=== PATIENT | female | born 1970 | race Caucasian/White ===

== ENCOUNTER 2016-06-12 18:08 | Emergency (ER) | payer BC ==
--- NOTE | 2016-06-12 19:54 | ED ---
Upper Extremity Pain - HPI Summary HPI Summary: Pt here w/ Lt shoulder pain s/p fall in hotel shower earlier today. She was bending over to get a shampoo bottle when she slipped and rotated to land and hit the side/back of her Lt shoulder in the corner of the bath tub. As she continued to roll, she thinks she may have grazed her nose on the side of the tub wall but denies lucia head injury. No report of epistaxis and denies LLOYD, visual change, neck pain and LOC. No back pain, elbow pain, forearm, wrist or hand pain. She does have a "pins and needles" sensation in her Lt thumbm index and ring fingers but is able to move them well, strength is intact and she has sensation when she touches here. No other injuries or pain reported. - History of Current Complaint Chief Complaint: EDShoulderClavicSami Stated Complaint: LEFT SHOULDER INJURY Time Seen by Provider: 06/12/16 18:44 Hx Obtained From: Patient, Family/[employer] - - Allergies/Home Medications Allergies/Adverse Reactions: Allergies Allergy/AdvReac Type Severity Reaction Status Date / Time beesting Allergy Anaphylatic Uncoded 06/12/16 18:13 Shock hard shellfish Allergy Anaphylatic Uncoded 06/12/16 18:13 Shock PMH/Surg Hx/FS Hx/Imm Hx Previously Healthy: Yes Endocrine/Hematology History: Denies: Hx Anticoagulant Therapy, Hx Blood Disorders, Hx Diabetes, Hx Thyroid Disease, Hx Unexplained Bleeding Cardiovascular History: Denies: Hx Hypertension, Hx Pacemaker/ICD Respiratory History: Denies: Hx Asthma, Hx Chronic Obstructive Pulmonary Disease (COPD) GI History: Denies: Hx Ulcer Sensory History: Denies: Hx Hearing Aid Psychiatric History: Denies: Hx Panic Disorder - Surgical History Surgery Procedure, Year, and Place: TUBAL PRIOR TO HYSTERECTOMY JANUARY 2011;. GALLBLADDER 1992;. TENDON REPAIR WRIST 2001;. tendon/ligament and heel removed w/arch surgery left foot Infectious Disease History: No Infectious Disease History: Denies: Hx Hepatitis, Hx Human Immunodeficiency Virus (HIV), History Other Infectious Disease, Traveled Outside the [place] in Last 30 Days - Social History Occupation: Employed Full-time - [employer] Alcohol Use: Rare Substance Use Type: Reports: None Smoking Status (MU): Never Smoked Tobacco Review of Systems Negative: Photophobia, Blurred Vision, Diplopia Negative: Dental Pain Negative: Chest Pain Negative: Shortness Of Breath Negative: Abdominal Pain, Vomiting, Nausea Positive: no symptoms reported Musculoskeletal: Other - see HPI Negative: Bruising Positive: Paresthesia - see HPI. Negative: Headache, Weakness, Numbness, Syncope, Slurred Speech Psychological: Normal All Other Systems Reviewed And Are Negative: Yes Physical Exam Triage Information Reviewed: Yes Vital Signs On Initial Exam: Initial Vitals Temp Pulse Resp BP Pulse Ox 97.9 F 82 16 155/93 100 06/12/16 18:13 06/12/16 18:13 06/12/16 18:13 06/12/16 18:13 06/12/16 18:13 Vital Signs Reviewed: Yes Appearance: Positive: Well-Appearing, No Pain Distress - at rest - pain w/ moving Lt UE, Obese Skin: Positive: Warm, Dry - no lucia erythema or ecchymosis Head/Face: Positive: Normal Head/Face Inspection Eyes: Positive: Normal, EOMI, Conjunctiva Clear ENT: Positive: Hearing grossly normal, Pharynx normal Neck: Positive: Supple, Nontender Respiratory/Lung Sounds: Positive: Breath Sounds Present. Negative: Subcutaneous Emphysema Cardiovascular: Positive: Normal, Pulses are Symmetrical in both Upper and Lower Extremities Abdomen Description: Positive: Nontender, Soft Musculoskeletal: Positive: Strength/ROM Intact, Pain @ - Although she can abduct her Lt shoulder, she has pain w/ end range of motion; can also internal rotate but is painful; TTP over anterior humerus and deltoid area; clavicle is intact and NTTP, Other - SPINOUS PP NTTP and FROM spine w/o pain or restriction Neurological: Positive: Normal, Sensory/Motor Intact, Alert, Oriented to Person Place, Time, CN Intact II-III Psychiatric: Positive: Normal Diagnostics - Vital Signs Vital Signs Temp Pulse Resp BP Pulse Ox 06/12/16 18:13 97.9 F 82 16 155/93 100 - Laboratory Lab Statement: Any lab studies that have been ordered have been reviewed, and results considered in the medical decision making process. Course/Dx - Course Course Of Treatment: XR report states "on the AP view, the Lt lateral head of the humeral head appears to be displaced somewhat displaced inferiorly relative to the bony glenoid labrum. There is no definitive fracture identified. Please correlate to signs of dislocation.". As pt does not have gross deformity of shoulder and although painful, has FROM Lt shoulder, elbow, wrist and fingers. Strength and sensation to touch intact. Pt reports "pins and needles along fingers innervated by median n (htumb, index and middle fingers). Well perfused. Discussed w/ Dr. Adamson who feels pt is a fine candidate for sling and follow-up with ortho. Reviewed danger s/sx w/ pt for when to return to ED. - Diagnoses Provider Diagnoses: Sprain of shoulder, left Discharge - Discharge Plan Condition: Stable Disposition: HOME Patient Education Materials: Shoulder Dislocation (ED), How to Use a Sling (GEN ), Shoulder Sprain (ED) Forms: *Work Release Referrals: Latrell Stewart MD [Medical Doctor] - Jerome DANG,Torey Mcclure [Primary Care Provider] - Additional Instructions: Your XR indicates a mild inferior dislocation of your shoulder however you are able to move it through a complete range of motion and have good neurovascular supply. No fracture is seen. It is advised that you take ibuoprofen with food alternating with acetaminophen for pain. Apply ice and keep arm in sling. Follow -up with orthopedics next week. *If you develop numbness or weakness of your arm or discoloration of skin, coolness, etc return to ED
[2016-06-12] MEDS ORDERED: Ibuprofen TAB* 600 MG PO ONE (20:06)
--- NOTE | 2016-06-12 20:07 | RAD ---
INDICATION: Left shoulder pain after a fall COMPARISON: None. TECHNIQUE: 3 views of the left shoulder were obtained. FINDINGS: The visualized bones are adequately corticated. On the AP views the humeral head appears to be displaced inferiorly relative to the bony glenoid labrum. Otherwise joint spaces appear maintained. IMPRESSION: ON THE AP VIEWS THE LEFT HUMERAL HEAD APPEARS TO BE DISPLACED SOMEWHAT INFERIORLY RELATIVE TO THE BONY GLENOID LABRUM. THERE IS NO DEFINITE FRACTURE IDENTIFIED. PLEASE CORRELATE TO SIGNS OF DISLOCATION. If the patient's symptoms persist, follow-up imaging is recommended.
[2016-06-12 20:41] VITALS: BP 146/82
== END 2016-06-12 20:40 | disposition home or self-care (01) ==
LOC: ED 18:08
DX: S43.402A Unspecified sprain of left shoulder joint, initial encounter (principal); W18.2XXA Fall in (into) shower or empty bathtub, initial encounter; Y93.E1 Activity, personal bathing and showering; Y92.002 Bathroom of unspecified non-institutional (private) residence as the place of occurrence of the external cause
CPT/HCPCS: 99282; A9270-GY

== ENCOUNTER → 2016-11-11 17:26 | Emergency (ER) | payer BC ==
[2016-11-11 19:56] VITALS: BP 127/66
--- NOTE | 2016-11-11 21:29 | ED ---
Throat Pain/Nasal Congestion - HPI Summary HPI Summary: Patient presents to the ED with dysphagia, odynphagia and vomiting x 2 in the past week. She states the symptoms began spontaneously last week and have progressively worsened. Hx of GERD with symptoms of burning in the throat, but has never had odynophagia or dysphagia. She states symptoms have worsened, and feels like when food gets "stuck" she vomits the food out. She feels a lump in the back of her throat and feels that once the food will pass through the throat , its OK. She notes to symptoms of tightness, FB feeling and burning sensation. - History of Current Complaint Chief Complaint: EDThroatPain Time Seen by Provider: 11/11/16 18:07 Hx Obtained From: Patient Onset/Duration: Sudden Onset Severity: Moderate Associated Signs And Symptoms: Positive: Dysphagia, FB Sensation - Epiglottits Risk Factors Epiglottis Risk Factors: Negative - Allergies/Home Medications Allergies/Adverse Reactions: Allergies Allergy/AdvReac Type Severity Reaction Status Date / Time beesting Allergy Anaphylatic Uncoded 06/12/16 18:13 Shock hard shellfish Allergy Anaphylatic Uncoded 06/12/16 18:13 Shock PMH/Surg Hx/FS Hx/Imm Hx Previously Healthy: Yes Endocrine/Hematology History: Denies: Hx Anticoagulant Therapy, Hx Blood Disorders, Hx Diabetes, Hx Thyroid Disease, Hx Unexplained Bleeding Cardiovascular History: Denies: Hx Hypertension, Hx Pacemaker/ICD Respiratory History: Denies: Hx Asthma, Hx Chronic Obstructive Pulmonary Disease (COPD) GI History: Denies: Hx Ulcer Sensory History: Denies: Hx Hearing Aid Psychiatric History: Denies: Hx Panic Disorder - Surgical History Surgery Procedure, Year, and Place: TUBAL PRIOR TO HYSTERECTOMY JANUARY 2011;. GALLBLADDER 1992;. TENDON REPAIR WRIST 2001;. tendon/ligament and heel removed w/arch surgery left foot Infectious Disease History: No Infectious Disease History: Denies: Hx Hepatitis, Hx Human Immunodeficiency Virus (HIV), History Other Infectious Disease, Traveled Outside the [place] in Last 30 Days - Social History Occupation: Employed Full-time Lives: With Family Alcohol Use: Rare Hx Substance Use: No Substance Use Type: Reports: None Hx Tobacco Use: No Smoking Status (MU): Never Smoked Tobacco Do You Chew or Dip Tobacco: No Review of Systems Constitutional: Negative Eyes: Negative Positive: Sore Throat Cardiovascular: Negative Respiratory: Negative Positive: no symptoms reported, see HPI Musculoskeletal: Negative Neurological: Negative Psychological: Normal All Other Systems Reviewed And Are Negative: Yes Physical Exam Triage Information Reviewed: Yes Vital Signs On Initial Exam: Initial Vitals Temp Pulse Resp BP Pulse Ox 98.1 F 76 20 162/102 99 11/11/16 17:51 11/11/16 17:51 11/11/16 17:51 11/11/16 17:51 11/11/16 17:51 Vital Signs Reviewed: Yes Appearance: Positive: Well-Appearing, Well-Nourished Skin: Positive: Warm, Skin Color Reflects Adequate Perfusion Head/Face: Positive: Normal Head/Face Inspection Eyes: Positive: EOMI, YVETTE, Conjunctiva Clear ENT: Positive: Pharynx normal, Other - no tonsillar swelling, small white stone resembling a tonsillar stone on the left tonsil with airway patent and no enlarged LN. Neck: Positive: Supple, No Lymphadenopathy Respiratory/Lung Sounds: Positive: Clear to Auscultation, Breath Sounds Present Cardiovascular: Positive: Normal, RRR, Pulses are Symmetrical in both Upper and Lower Extremities Musculoskeletal: Positive: Normal, Strength/ROM Intact Neurological: Positive: Sensory/Motor Intact, Speech Normal Psychiatric: Positive: Normal AVPU Assessment: Alert Diagnostics - Vital Signs Vital Signs Temp Pulse Resp BP Pulse Ox 11/11/16 19:54 98.5 F 67 16 127/66 11/11/16 18:11 98.1 F 76 16 145/86 98 11/11/16 17:51 98.1 F 76 20 162/102 99 - Laboratory Lab Results: Lab Results 11/11/16 Range/Units 18:27 Group A Strep Rapid Negative (Negative) Lab Statement: Any lab studies that have been ordered have been reviewed, and results considered in the medical decision making process. EENT Course/Dx - Course Course Of Treatment: Patient presents with concern for dysphagia and odynophagia x 1 week which has been worsening. She notes to eating soft foods and liquids after 2x episodes vomiting. Discussed treatment options with patient. Encouraged a trial of omeprazole daily and maalox for breakthrough sxs for symptoms possibly related to GERD symptoms. Prednisone given for any inflammation. Encouraged ibuprofen 600mg three times daily and soft food diet. ENT referral and discussed the possible need for scope. She agrees with plan and is OK for discharge. - Differential Diagnoses Differential Diagnoses: Foreign Body, Other - odynophagia/dysphagia - Diagnoses Provider Diagnoses: Dysphagia, Odynophagia Discharge - Discharge Plan Condition: Stable Disposition: HOME Prescriptions: Al Hydrox/Mg Hydrox/Simet LIQ* [Maalox Plus*] 30 ml PO Q4H PRN #600 ml PRN Reason: Pain Omeprazole 40 mg PO DAILY #30 cap predniSONE TAB* [Deltasone TAB*] 50 mg PO DAILY #5 tab MDD 1 Patient Education Materials: Dysphagia (ED) Referrals: Erasmo Ordaz MD [Medical Doctor] - Jerome DANG,Torey Mcclure [Primary Care Provider] - Additional Instructions: Call Dr. Ordaz's office tomorrow morning for appt Start taking prednisone once daily in the morning for 5 days Omeprazole 40mg daily - this is also over the counter Maalox 30ml up to every 4 hours only as needed for symptoms Ibpurofen 600mg three times daily for discomfort
== END | disposition home or self-care (01) ==
LOC: ED 17:26
DX: R13.10 Dysphagia, unspecified (principal); R11.10 Vomiting, unspecified; J02.9 Acute pharyngitis, unspecified
CPT/HCPCS: 87651; 99281

== ENCOUNTER 2018-01-05 17:40 | Emergency (ER) | payer BC ==
[2018-01-05] MEDS ORDERED: Ondansetron INJ* 2 MG/ML VIAL IV ONE (18:43)
[2018-01-05] MEDS ORDERED: Morphine VIAL* 10 MG/ML 1 ML VIAL IV ONE (18:43)
[2018-01-05] MEDS ORDERED: NS 0.9% 1000 ML* 1,000 ML IV ONE (18:43)
[2018-01-05 19:21] LABS: Hematocrit 44 % (35-47); Mean Corpuscular HGB Conc 34 g/dl (31-36); Mean Corpuscular Hemoglobin 30 pg (27-31); Mean Corpuscular Volume 88 fL (80-97); Mean Platelet Volume 9.6 um3 (7.4-10.4); Platelet Count 187 10^3/ul (150-450); Red Blood Count 5.03 10^6/ul (4.00-5.40); Red Cell Distribution Width 14 % (10.5-15); White Blood Count 4.2 10^3/ul (3.5-10.8)
[2018-01-05] MEDS ORDERED: Morphine INJ* 4 MG/ML 1 ML SYRINGE (NEW SYRINGE VERSION) ONE (19:33)
[2018-01-05 19:36] LABS: EGFR Non-African American 95.2 (>60)
[2018-01-05 19:54] LABS: ABS Basophils 0 10^3/ul (0-0.2); ABS Eosinophils 0 10^3/ul (0-0.6); ABS Lymphocytes 1.4 10^3/ul (1.0-4.8); ABS Monocytes 0.6 10^3/ul (0-0.8); ABS Neutrophils 2.2 10^3/ul (1.5-7.7); ABS Nucleated RBC 0 10^3/ul; Eosinophil % 0.7 % (0-6); Nucleated Red Blood Cells % 0.3
[2018-01-05 20:33] LABS: Urine Appearance Cloudy; Urine Blood Negative (Negative); Urine Color Amber; Urine Ketones Negative (Negative); Urine Protein 1+(30 mg/dL) (Negative); Urine Red Blood Cell Absent (Absent); Urine Specific Gravity 1.029 (1.010-1.030); Urine Urobilinogen Positive (Negative); Urine White Blood Cell Trace(0-5/hpf) (Absent)
--- NOTE | 2018-01-05 20:52 | ED ---
Abdominal Pain/Female - HPI Summary HPI Summary: Patient complains of chills, subjective fever, upper abdominal pain, bilateral low back pain, N/V, diarrhea starting 4 days ago. Abdominal discomfort pain described as constant, worse with eating, achy. Bilateral lower back pain described as lower back pain, constant, achy. Has taken ibuprofen with some relief. Denies LLOYD, neck stiffness, cough, sore throat, CP, SOB, change in urine , vaginal symptoms. Medical history is none. Abdominal surgical history is partial hysterectomy, cholecystectomy. - History of Current Complaint Chief Complaint: EDFluSymptoms Stated Complaint: FEVER/ABD AND BACK PAIN Time Seen by Provider: 01/05/18 18:24 Hx Obtained From: Patient ?: No Onset/Duration: Sudden Onset Timing: Constant Severity Initially: Moderate Severity Currently: Moderate Pain Intensity: 8 Pain Scale Used: 0-10 Numeric Location: Discrete At: RUQ, Epigastric Radiates: Yes Radiates to: Back Character: Cramping Aggravating Factor(s): Food, Movement Alleviating Factor(s): Nothing Associated Signs and Symptoms: Positive: Fever, Back Pain, Decreased Appetite, Nausea, Vomiting, Diarrhea Allergies/Adverse Reactions: Allergies Allergy/AdvReac Type Severity Reaction Status Date / Time bee venom protein (honey bee) Allergy Anaphylatic Verified 01/05/18 18:35 Shock shellfish derived Allergy Anaphylatic Verified 01/05/18 18:35 Shock PMH/Surg Hx/FS Hx/Imm Hx Endocrine/Hematology History: Denies: Hx Anticoagulant Therapy, Hx Blood Disorders, Hx Diabetes, Hx Thyroid Disease, Hx Unexplained Bleeding Cardiovascular History: Denies: Hx Hypertension, Hx Pacemaker/ICD Respiratory History: Denies: Hx Asthma, Hx Chronic Obstructive Pulmonary Disease (COPD) GI History: Denies: Hx Ulcer Sensory History: Denies: Hx Hearing Aid Psychiatric History: Denies: Hx Panic Disorder - Surgical History Surgery Procedure, Year, and Place: TUBAL PRIOR TO HYSTERECTOMY JANUARY 2011;. GALLBLADDER 1992;. TENDON REPAIR WRIST 2001;. tendon/ligament and heel removed w/arch surgery left foot - Immunization History Immunizations Up to Date: Yes Infectious Disease History: No Infectious Disease History: Denies: Hx Hepatitis, Hx Human Immunodeficiency Virus (HIV), History Other Infectious Disease, Traveled Outside the [place] in Last 30 Days - Social History Alcohol Use: None Hx Substance Use: No Substance Use Type: Reports: None Hx Tobacco Use: No Smoking Status (MU): Never Smoked Tobacco Review of Systems Positive: Fever, Chills Eyes: Negative ENT: Negative Cardiovascular: Negative Respiratory: Negative Positive: Abdominal Pain, Vomiting, Diarrhea, Nausea Genitourinary: Negative Positive: Other Skin: Negative Neurological: Negative Psychological: Normal All Other Systems Reviewed And Are Negative: Yes Physical Exam - Summary Physical Exam Summary: Tenderness to palpation in epigastrium and right upper quadrant of abdomen. Abdominal exam otherwise unremarkable. No tenderness to palpation of lower or mid back bilaterally. No CVA tenderness bilaterally. Physical exam otherwise unremarkable. Triage Information Reviewed: Yes Vital Signs On Initial Exam: Initial Vitals Temp Pulse Resp BP Pulse Ox 97.1 F 97 18 125/93 97 01/05/18 17:41 01/05/18 17:41 01/05/18 17:41 01/05/18 17:41 01/05/18 17:41 Vital Signs Reviewed: Yes Appearance: Positive: Well-Appearing Skin: Positive: Warm Head/Face: Positive: Normal Head/Face Inspection Eyes: Positive: Normal ENT: Positive: Normal ENT inspection Neck: Positive: Supple Respiratory/Lung Sounds: Positive: Clear to Auscultation Cardiovascular: Positive: Normal Abdomen Description: Positive: Other: Musculoskeletal: Positive: Normal Neurological: Positive: Normal Psychiatric: Positive: Normal AVPU Assessment: Alert - [place] Coma Scale Best Eye Response: 4 - Spontaneous Best Motor Response: 6 - Obeys Commands Best Verbal Response: 5 - Oriented Coma Scale Total: 15 Diagnostics - Vital Signs Vital Signs Temp Pulse Resp BP Pulse Ox 01/05/18 19:39 16 01/05/18 17:41 97.1 F 97 18 125/93 97 - Laboratory Lab Results: Lab Results 01/05/18 01/05/18 01/05/18 Range/Units 19:14 19:14 19:14 WBC 4.2 (3.5-10.8) 10^3/ul RBC 5.03 (4.00-5.40) 10^6/ul Hgb 15.0 (12.0-16.0) g/dl Hct 44 (35-47) % MCV 88 (80-97) fL MCH 30 (27-31) pg MCHC 34 (31-36) g/dl RDW 14 (10.5-15) % Plt Count 187 (150-450) 10^3/ul MPV 9.6 (7.4-10.4) um3 Neut % (Auto) 51.5 (38-83) % Lymph % (Auto) 33.0 (25-47) % [place] % (Auto) 13.7 H (0-7) % Eos % (Auto) 0.7 (0-6) % Baso % (Auto) 1.1 (0-2) % Absolute Neuts (auto) 2.2 (1.5-7.7) 10^3/ul Absolute Lymphs (auto) 1.4 (1.0-4.8) 10^3/ul Absolute Monos (auto) 0.6 (0-0.8) 10^3/ul Absolute Eos (auto) 0 (0-0.6) 10^3/ul Absolute Basos (auto) 0 (0-0.2) 10^3/ul Absolute Nucleated RBC 0 10^3/ul Nucleated RBC % 0.3 Sodium 137 (135-145) mmol/L Potassium 3.2 L (3.5-5.0) mmol/L Chloride 105 (101-111) mmol/L Carbon Dioxide 26 (22-32) mmol/L Anion Gap 6 (2-11) mmol/L BUN 11 (6-24) mg/dL Creatinine 0.66 (0.51-0.95) mg/dL Est GFR ( Amer) 115.2 (>60) Est GFR (Non-Af Amer) 95.2 (>60) BUN/Creatinine Ratio 16.7 (8-20) Glucose 87 (70-100) mg/dL Lactic Acid 0.9 (0.5-2.0) mmol/L Calcium 8.9 (8.6-10.3) mg/dL Total Bilirubin 1.00 (0.2-1.0) mg/dL AST 44 H (13-39) U/L ALT 51 (7-52) U/L Alkaline Phosphatase 110 H (34-104) U/L C-Reactive Protein 70.74 H (<8.01) mg/L Total Protein 6.9 (6.4-8.9) g/dL Albumin 3.9 (3.2-5.2) g/dL Globulin 3.0 (2-4) g/dL Albumin/Globulin Ratio 1.3 (1-3) Lipase 18 (11.0-82.0) U/L Urine Color Urine Appearance Urine pH (5-9) Ur Specific [place] (1.010-1.030) Urine Protein (Negative) Urine Ketones (Negative) Urine Blood (Negative) Urine Nitrate (Negative) Urine Bilirubin (Negative) Urine Urobilinogen (Negative) Ur Leukocyte Esterase (Negative) Urine WBC (Auto) (Absent) Urine RBC (Auto) (Absent) Ur Squamous Epith Cells (Absent) Urine Bacteria (Absent) Urine Glucose (Negative) Influenza A (Rapid) (Negative) Influenza B (Rapid) (Negative) 01/05/18 01/05/18 Range/Units 20:23 20:34 WBC (3.5-10.8) 10^3/ul RBC (4.00-5.40) 10^6/ul Hgb (12.0-16.0) g/dl Hct (35-47) % MCV (80-97) fL MCH (27-31) pg MCHC (31-36) g/dl RDW (10.5-15) % Plt Count (150-450) 10^3/ul MPV (7.4-10.4) um3 Neut % (Auto) (38-83) % Lymph % (Auto) (25-47) % [place] % (Auto) (0-7) % Eos % (Auto) (0-6) % Baso % (Auto) (0-2) % Absolute Neuts (auto) (1.5-7.7) 10^3/ul Absolute Lymphs (auto) (1.0-4.8) 10^3/ul Absolute Monos (auto) (0-0.8) 10^3/ul Absolute Eos (auto) (0-0.6) 10^3/ul Absolute Basos (auto) (0-0.2) 10^3/ul Absolute Nucleated RBC 10^3/ul Nucleated RBC % Sodium (135-145) mmol/L Potassium (3.5-5.0) mmol/L Chloride (101-111) mmol/L Carbon Dioxide (22-32) mmol/L Anion Gap (2-11) mmol/L BUN (6-24) mg/dL Creatinine (0.51-0.95) mg/dL Est GFR ( Amer) (>60) Est GFR (Non-Af Amer) (>60) BUN/Creatinine Ratio (8-20) Glucose (70-100) mg/dL Lactic Acid (0.5-2.0) mmol/L Calcium (8.6-10.3) mg/dL Total Bilirubin (0.2-1.0) mg/dL AST (13-39) U/L ALT (7-52) U/L Alkaline Phosphatase (34-104) U/L C-Reactive Protein (<8.01) mg/L Total Protein (6.4-8.9) g/dL Albumin (3.2-5.2) g/dL Globulin (2-4) g/dL Albumin/Globulin Ratio (1-3) Lipase (11.0-82.0) U/L Urine Color Jyoti Urine Appearance Cloudy Urine pH 5.0 (5-9) Ur Specific [place] 1.029 (1.010-1.030) Urine Protein 1+(30 mg/dl) A (Negative) Urine Ketones Negative (Negative) Urine Blood Negative (Negative) Urine Nitrate Negative (Negative) Urine Bilirubin Negative (Negative) Urine Urobilinogen Positive A (Negative) Ur Leukocyte Esterase Negative (Negative) Urine WBC (Auto) Trace(0-5/hpf) (Absent) Urine RBC (Auto) Absent (Absent) Ur Squamous Epith Cells Present A (Absent) Urine Bacteria 1+ A (Absent) Urine Glucose Negative (Negative) Influenza A (Rapid) Negative (Negative) Influenza B (Rapid) Negative (Negative) Result Diagrams: 01/05/18 19:14 01/05/18 19:14 Lab Statement: Any lab studies that have been ordered have been reviewed, and results considered in the medical decision making process. Abdominal Pain Fem Course/Dx - Course Course Of Treatment: Patient complains of chills, subjective fever, upper abdominal pain, bilateral low back pain, N/V, diarrhea starting 4 days ago. Abdominal discomfort pain described as constant, worse with eating, achy. Bilateral lower back pain described as lower back pain, constant, achy. Has taken ibuprofen with some relief. Denies LLOYD, neck stiffness, cough, sore throat , CP, SOB, change in urine, vaginal symptoms. Medical history is none. Abdominal surgical history is partial hysterectomy, cholecystectomy. Ibuprofen taken at 3 PM. Physical exam:Tenderness to palpation in epigastrium and right upper quadrant of abdomen. Abdominal exam otherwise unremarkable. No tenderness to palpation of lower or mid back bilaterally. No CVA tenderness bilaterally. Physical exam otherwise unremarkable. Vital signs unremarkable. Labs unremarkable. CT abdomen and pelvis negative. Likely viral syndrome. - Diagnoses Provider Diagnoses: Nausea & vomiting, Diarrhea, Abdominal pain, Back pain Discharge - Sign-Out/Discharge Documenting (check all that apply): Patient Departure - Discharge Plan Condition: Stable Disposition: HOME Patient Education Materials: Viral Syndrome (ED) Referrals: Jerome DANG,Torey Mcclure [Primary Care Provider] - Juan Dougherty MD [Medical Doctor] - Additional Instructions: If symptoms continue follow-up with GI Dr Dougherty. Return to the ED for any new or worsening symptoms. - Billing Disposition and Condition Condition: STABLE Disposition: Home
[2018-01-05] MEDS ORDERED: Iohexol 300* (CONTRAST) 10 ML SDV IV ONE (21:10)
--- NOTE | 2018-01-05 23:42 | RAD ---
EXAM: CT Abdomen and Pelvis With Intravenous Contrast EXAM DATE/TIME: 01/05/2018 10:18 PM CLINICAL HISTORY: 47 years old, female; Pain; Abdominal pain; Epigastric; Additional info: Upper ab pain TECHNIQUE: Axial computed tomography images of the abdomen and pelvis with intravenous contrast. All CT scans at this facility use at least one of these dose optimization techniques: automated exposure control; mA and/or kV adjustment per patient size (includes targeted exams where dose is matched to clinical indication); or iterative reconstruction. Coronal and sagittal reformatted images were created and reviewed. CONTRAST: 133 ml of [id number] administered intravenously. COMPARISON: No relevant prior studies available. FINDINGS: Lower thorax: Minimal bilateral lower lobe dependent atelectasis. ABDOMEN: Liver: Normal. No mass. Gallbladder and bile ducts: Status post cholecystectomy. Pancreas: Normal. No ductal dilation. Spleen: The spleen measures 12.8 cm and is borderline. Adrenals: Left adrenal nodule measuring 11 mm. Kidneys and ureters: Normal. No hydronephrosis. Stomach and bowel: Normal. No obstruction. No mucosal thickening. Appendix: A normal appendix is seen. PELVIS: Bladder: Unremarkable as visualized. Reproductive: Unremarkable as visualized. ABDOMEN and PELVIS: Intraperitoneal space: Normal. No free air. No significant fluid collection. Bones/joints: No acute fracture. No dislocation. Soft tissues: Unremarkable. Vasculature: Normal. No abdominal aortic aneurysm. Lymph nodes: Normal. No enlarged lymph nodes. IMPRESSION: 1. Status post cholecystectomy. 2. Borderline splenomegaly. 3. Otherwise negative CT abdomen/pelvis. To contact [facility] with a general question: [facility] - [phone] For direct physician to physician contact: Physician Hotline - [phone] [facility] ([facility] Facility ID #[id number])
[2018-01-06 00:14] VITALS: BP 127/74
== END 2018-01-06 00:13 | disposition home or self-care (01) ==
LOC: ED 17:40
DX: R11.2 Nausea with vomiting, unspecified (principal); R19.7 Diarrhea, unspecified; M54.9 Dorsalgia, unspecified; R10.13 Epigastric pain; R10.11 Right upper quadrant pain
CPT/HCPCS: 36415; 74177; 80053; 81003; 81015; 83605; 83690; 85025; 86140; 87040; 87086; 96361; 96374; 96375; 99283; J2270; J2405; Q9967

== ENCOUNTER 2018-12-28 17:41 | Emergency (ER) | payer BC, OTHER ==
--- NOTE | 2018-12-28 19:44 | ED ---
Lower Extremity - HPI Summary HPI Summary: 48 year old female presents with right leg pain for the past week. States that she was in a car for 8 hours for the other day and then 6 hours. She does have a history of blood clots when she was . Has family history of blood clots. States this feels similar. She also has a rash behind her knee. States it is more swollen. rash has been spreading. has bug bites on front of leg. Denies any chest pain shortness breath. Has no medical history. is nonsmoker. - History of Current Complaint Chief Complaint: EDSoftTissueLowExtr Stated Complaint: PAIN / SWELLING RT KNEE PER PT Time Seen by Provider: 12/28/18 19:28 Pain Intensity: 8 - Allergies/Home Medications Allergies/Adverse Reactions: Allergies Allergy/AdvReac Type Severity Reaction Status Date / Time bee venom protein (honey bee) Allergy Anaphylatic Verified 01/05/18 18:35 Shock shellfish derived Allergy Anaphylatic Verified 01/05/18 18:35 Shock PMH/Surg Hx/FS Hx/Imm Hx Endocrine/Hematology History: Denies: Hx Anticoagulant Therapy, Hx Blood Disorders, Hx Diabetes, Hx Thyroid Disease, Hx Unexplained Bleeding Cardiovascular History: Denies: Hx Hypertension, Hx Pacemaker/ICD Respiratory History: Denies: Hx Asthma, Hx Chronic Obstructive Pulmonary Disease (COPD) GI History: Denies: Hx Ulcer Sensory History: Denies: Hx Hearing Aid Psychiatric History: Denies: Hx Panic Disorder - Surgical History Surgery Procedure, Year, and Place: TUBAL PRIOR TO HYSTERECTOMY JANUARY 2011;. GALLBLADDER 1992;. TENDON REPAIR WRIST 2001;. tendon/ligament and heel removed w/arch surgery left foot Infectious Disease History: No Infectious Disease History: Denies: Hx Hepatitis, Hx Human Immunodeficiency Virus (HIV), History Other Infectious Disease, Traveled Outside the [place] in Last 30 Days - Family History Known Family History: Positive: Non-Contributory - Social History Alcohol Use: None Hx Substance Use: No Substance Use Type: Reports: None Hx Tobacco Use: No Smoking Status (MU): Never Smoked Tobacco Review of Systems Negative: Fever Negative: Chest Pain Negative: Shortness Of Breath Positive: Myalgia - right leg Positive: Rash All Other Systems Reviewed And Are Negative: Yes Physical Exam Triage Information Reviewed: Yes Vital Signs On Initial Exam: Initial Vitals Temp Pulse Resp BP Pulse Ox 97.6 F 73 16 171/89 100 12/28/18 17:43 12/28/18 17:43 12/28/18 17:43 12/28/18 17:43 12/28/18 17:43 Vital Signs Reviewed: Yes Appearance: Positive: Well-Appearing Skin: Positive: Warm, Dry, Other - erythema behind right knee that is warm to touch Head/Face: Positive: Normal Head/Face Inspection Eyes: Positive: Normal, Conjunctiva Clear ENT: Positive: Pharynx normal Respiratory/Lung Sounds: Positive: Clear to Auscultation, Breath Sounds Present Cardiovascular: Positive: Normal, RRR Musculoskeletal: Positive: Strength/ROM Intact - right leg, Other - tenderness right thigh and calf, good pulses Neurological: Positive: Normal Psychiatric: Positive: Normal Procedures - Sedation Patient Received Moderate/Deep Sedation with Procedure: No Diagnostics - Vital Signs Vital Signs Temp Pulse Resp BP Pulse Ox 12/28/18 17:43 97.6 F 73 16 171/89 100 - Laboratory Result Diagrams: 12/28/18 19:45 12/28/18 19:45 Lab Statement: Any lab studies that have been ordered have been reviewed, and results considered in the medical decision making process. - Ultrasound No standard instances Ultrasound Interpretation Completed By: Radiologist Summary of Ultrasound Findings: IMPRESSION: 1. Duplicated distal right femoral vein. Both vessels have normal color flow and augmentation. However, neither vessel vessel is compressible and nonocclusive thrombus cannot be excluded. 2. No other evidence of right lower extremity DVT. Lower Extremity Course/Dx - Course Course Of Treatment: 48 year old female presents with right leg pain for the past week. States that she was in a car for 8 hours for the other day and then 6 hours. She does have a history of blood clots when she was . Has family history of blood clots. States this feels similar. She also has a rash behind her knee. States it is more swollen. rash has been spreading. has bug bites on front of leg. Denies any chest pain shortness breath. Has no medical history. is nonsmoker. On exam tenderness right thigh and calf. Has erythematous rash behind right knee. will treat as potential cellulitis with Keflex. Ultrasound shows noncompressible veins with no obvious clot. Pain is in the areas so will treat as dvt with ultrasound findings and risk factors. discussed with patient and will start on xarelto. will have follow up with primary about getting repeat ultrasound in future to see if still noncompressible. patient understand and agrees with plan. - Diagnoses Differential Diagnosis/HQI/PQRI: Positive: DVT, Infection, Sprain Provider Diagnoses: Right leg DVT, Cellulitis Discharge ED - Sign-Out/Discharge Documenting (check all that apply): Patient Departure - Discharge Plan Condition: Good Disposition: HOME Prescriptions: Cephalexin CAP* [Keflex CAP*] 500 mg PO BID #19 cap Rivaroxaban TAB(*) [Xarelto 15 mg(*)] 15 mg PO BID #41 tab Patient Education Materials: Cellulitis (ED), Deep Vein Thrombosis (ED) Referrals: Jerome DANG,Torey Mcclure [Primary Care Provider] - Additional Instructions: Take xarelto twice a day for 21 days then once a day Take with food take keflex twice a day for 10 days Avoid Aspirin or ibuprofen, use Tylenol for pain Follow up with primary care physician for continued care Return to ED if develop any chest pain or shortness of breath any new or worsening symptoms - Billing Disposition and Condition Condition: GOOD Disposition: Home
[2018-12-28 19:53] VITALS: BP 142/92
[2018-12-28 19:55] LABS: ABS Basophils 0.1 10^3/ul (0-0.2); ABS Eosinophils 0.3 10^3/ul (0-0.6); ABS Lymphocytes 2.9 10^3/ul (1.0-4.8); ABS Monocytes 0.7 10^3/ul (0-0.8); ABS Neutrophils 5.7 10^3/ul (1.5-7.7); Eosinophil % 2.7 %; Hematocrit 44 % (35-47); Hemoglobin 14.8 g/dL (12.0-16.0); Lymphocyte % 30.2 %; Mean Corpuscular HGB Conc 34 g/dL (31-36); Mean Corpuscular Hemoglobin 30 pg (27-31); Mean Corpuscular Volume 88 fL (80-97); Mean Platelet Volume 9.7 fL (7.4-10.4); Nucleated Red Blood Cells % 0.1; Platelet Count 332 10^3/uL (150-450); Red Cell Distribution Width 13 % (10-15); White Blood Count 9.6 10^3/uL (3.5-10.8)
[2018-12-28 20:12] LABS: Albumin 4.1 g/dL (3.2-5.2); Albumin/Globulin Ratio 1.4 (1-3); BUN/Creatinine Ratio 14.3 (8-20); Calcium 9.2 mg/dL (8.6-10.3); EGFR African American 138.7 (>60); EGFR Non-African American 114.6 (>60); Potassium 3.3 mmol/L (3.5-5.0); Total Bilirubin 0.6 mg/dL (0.2-1.0); Total Protein 7.1 g/dL (6.4-8.9)
[2018-12-28] MEDS ORDERED: Rivaroxaban TAB(*) 15 MG PO ONE (20:26)
[2018-12-28] MEDS ORDERED: Cephalexin CAP* 500 MG PO ONE (20:27)
== END 2018-12-28 20:56 | disposition home or self-care (01) ==
LOC: ED 17:41
DX: I82.401 Acute embolism and thrombosis of unspecified deep veins of right lower extremity (principal); L03.90 Cellulitis, unspecified; M79.604 Pain in right leg; R21 Rash and other nonspecific skin eruption
CPT/HCPCS: 36415; 80053; 85025; 99282; A9270-GY

== ENCOUNTER 2018-12-31 12:59 | Emergency (ER) | payer OTHER ==
[2018-12-31 16:21] VITALS: BP 121/74
--- NOTE | 2018-12-31 17:44 | ED ---
Lower Extremity - HPI Summary HPI Summary: Pt. is a 48 y.o female who presents to the ER for increased right leg pain and redness. Pt. was seen in ER 3 days ago and dx with cellulitis and non-occlusive DVT. She was started on keflex and xarelto. Pt. has been taking as directed. Pt. denies CP, SOB, fever. Pt. states red area on anterior leg has increased and there is a small blister that opened. Sxs are mild to moderate in severity. No current modifying factors. - History of Current Complaint Chief Complaint: EDExtremityLower Stated Complaint: RT KNEE PAIN PER PT Time Seen by Provider: 12/31/18 14:35 Hx Obtained From: Patient Pain Intensity: 6 Pain Scale Used: 0-10 Numeric - Allergies/Home Medications Allergies/Adverse Reactions: Allergies Allergy/AdvReac Type Severity Reaction Status Date / Time bee venom protein (honey bee) Allergy Anaphylatic Verified 12/31/18 13:15 Shock shellfish derived Allergy Anaphylatic Verified 12/31/18 13:15 Shock PMH/Surg Hx/FS Hx/Imm Hx Previously Healthy: Yes Endocrine/Hematology History: Denies: Hx Anticoagulant Therapy, Hx Blood Disorders, Hx Diabetes, Hx Thyroid Disease, Hx Unexplained Bleeding Cardiovascular History: Denies: Hx Hypertension, Hx Pacemaker/ICD Respiratory History: Denies: Hx Asthma, Hx Chronic Obstructive Pulmonary Disease (COPD) GI History: Denies: Hx Ulcer Sensory History: Denies: Hx Hearing Aid Psychiatric History: Denies: Hx Panic Disorder - Surgical History Surgery Procedure, Year, and Place: TUBAL PRIOR TO HYSTERECTOMY JANUARY 2011;. GALLBLADDER 1992;. TENDON REPAIR WRIST 2001;. tendon/ligament and heel removed w/arch surgery left foot Infectious Disease History: No Infectious Disease History: Denies: Hx Hepatitis, Hx Human Immunodeficiency Virus (HIV), History Other Infectious Disease, Traveled Outside the [place] in Last 30 Days - Family History Known Family History: Positive: Non-Contributory - Social History Occupation: Employed Full-time Lives: With Family Alcohol Use: None Hx Substance Use: No Substance Use Type: Reports: None Hx Tobacco Use: No Smoking Status (MU): Never Smoked Tobacco Review of Systems Constitutional: Negative Negative: Fever, Chills Cardiovascular: Negative Negative: Chest Pain Respiratory: Negative Negative: Shortness Of Breath Positive: Other - pain to right leg. Positive: Other - redness to right leg Neurological: Negative Negative: Weakness, Paresthesia, Numbness All Other Systems Reviewed And Are Negative: Yes Physical Exam Triage Information Reviewed: Yes Vital Signs On Initial Exam: Initial Vitals Temp Pulse Resp BP Pulse Ox 99.2 F 93 16 173/116 98 12/31/18 13:07 12/31/18 13:07 12/31/18 13:07 12/31/18 13:07 12/31/18 13:07 Vital Signs Reviewed: Yes Appearance: Positive: Well-Appearing - Pt. sitting up in bed in NAD. present. Skin: Positive: Warm, Dry Head/Face: Positive: Normal Head/Face Inspection Eyes: Positive: Normal, EOMI Neck: Positive: Supple Respiratory/Lung Sounds: Positive: Clear to Auscultation, Breath Sounds Present Cardiovascular: Positive: Normal, RRR Musculoskeletal: Positive: Other - Good pedal pulse on right. Calf is soft......... Neurological: Positive: Normal, CN Intact II-III Psychiatric: Positive: Affect/Mood Appropriate Procedures - Sedation Patient Received Moderate/Deep Sedation with Procedure: No Diagnostics - Vital Signs Vital Signs Temp Pulse Resp BP Pulse Ox 12/31/18 16:22 99.0 F 75 16 121/74 98 12/31/18 15:38 75 121/74 97 12/31/18 15:07 73 145/105 98 12/31/18 13:07 99.2 F 93 16 173/116 98 - Laboratory Lab Statement: Any lab studies that have been ordered have been reviewed, and results considered in the medical decision making process. Lower Extremity Course/Dx - Course Course Of Treatment: Pt. with worsening pain to right leg. She is concerned with increased cellulitis. Her exam is not very impressive. Afebrile. No cp or sob. Calf is compressible. Pt. notes she has only been taking one 500mg tab of tylenol a day for pain. Will rx a few days of ultram. Discussed tylenol dosing. Will add bactrim to cover mrsa. To elevate and apply warm compresses. Pt. has an apt. with pcp this coming week for recheck. Will return to er if sxs change or worsen. Pt. understands and agrees with plan. - Diagnoses Differential Diagnosis/HQI/PQRI: Positive: Cellulitis, DVT, Infection, Sprain, Strain Provider Diagnoses: Non-occlusive thrombus, Cellulitis Discharge ED - Sign-Out/Discharge Documenting (check all that apply): Patient Departure - Discharge Plan Condition: Good Disposition: HOME Prescriptions: Sulfamethox/Trimethoprim DS* [Bactrim DS 800/160 TAB*] 1 tab PO BID #20 tab traMADol TAB* [Ultram*] 25 mg PO Q6H PRN #8 tab MDD 4 PRN Reason: Pain - Severe Patient Education Materials: Cellulitis (ED), Deep Vein Thrombosis (ED) Forms: *Work Release Referrals: Jerome DANG,Torey Mcclure [Primary Care Provider] - Additional Instructions: Follow up with PCP this week as scheduled Continue antibiotic and blood thinner as directed Take bactrim as directed Ultram as directed for severe pain Can take 500-1000mg tylenol every 6 hours as directed for pain Elevate leg and apply warm compresses Return to ER if symptoms change or worsen - Billing Disposition and Condition Condition: GOOD Disposition: Home
== END 2018-12-31 16:22 | disposition home or self-care (01) ==
LOC: ED 12:59
DX: I82.401 Acute embolism and thrombosis of unspecified deep veins of right lower extremity (principal); L03.115 Cellulitis of right lower limb; Z79.01 Long term (current) use of anticoagulants; Z91.030 Bee allergy status; Z91.013 Allergy to seafood
CPT/HCPCS: 99282

== ENCOUNTER 2019-01-16 09:03 | Emergency (ER) | payer OTHER ==
--- NOTE | 2019-01-16 09:38 | ED ---
Lower Extremity - HPI Summary HPI Summary: Pt. is a 48 y.o female who presents to the ER for re-evaluation of right leg pain. Pt. seen in the ER about a month ago and dx with possible nonocclusive dvt and cellulitis. Placed on xarelto and keflex. Pt. return a week later for worsening redness. Bactrim added and pt. notes redness resolved. Pt. states today she noticed increased pain in her right leg and noticed new redness behind her right knee. She denies fever, chills, cp, sob. Pt. states she was scheduled for a repeat US next week but she called her PCP and was instructed to come to the ER for U/S given worsening pain. Sxs are moderate in severity. Ambulating exacerbates pain. Rest improves sxs. - History of Current Complaint Chief Complaint: EDExtremityLower Stated Complaint: RIGHT LEG PIAN Time Seen by Provider: 01/16/19 09:12 Hx Obtained From: Patient Pain Intensity: 8 - Allergies/Home Medications Allergies/Adverse Reactions: Allergies Allergy/AdvReac Type Severity Reaction Status Date / Time bee venom protein (honey bee) Allergy Anaphylatic Verified 01/16/19 09:17 Shock shellfish derived Allergy Anaphylatic Verified 01/16/19 09:17 Shock PMH/Surg Hx/FS Hx/Imm Hx Previously Healthy: Yes Endocrine/Hematology History: Denies: Hx Anticoagulant Therapy, Hx Blood Disorders, Hx Diabetes, Hx Thyroid Disease, Hx Unexplained Bleeding Cardiovascular History: Denies: Hx Hypertension, Hx Pacemaker/ICD Respiratory History: Denies: Hx Asthma, Hx Chronic Obstructive Pulmonary Disease (COPD) GI History: Denies: Hx Ulcer Sensory History: Denies: Hx Hearing Aid Psychiatric History: Denies: Hx Panic Disorder - Surgical History Surgery Procedure, Year, and Place: TUBAL PRIOR TO HYSTERECTOMY JANUARY 2011;. GALLBLADDER 1992;. TENDON REPAIR WRIST 2001;. tendon/ligament and heel removed w/arch surgery left foot Infectious Disease History: No Infectious Disease History: Denies: Hx Hepatitis, Hx Human Immunodeficiency Virus (HIV), History Other Infectious Disease, Traveled Outside the [place] in Last 30 Days - Family History Known Family History: Positive: Non-Contributory - Social History Occupation: Employed Full-time Lives: With Family Alcohol Use: None Hx Substance Use: No Substance Use Type: Reports: None Hx Tobacco Use: No Smoking Status (MU): Never Smoked Tobacco Review of Systems Constitutional: Negative Negative: Fever Cardiovascular: Negative Negative: Chest Pain Respiratory: Negative Negative: Shortness Of Breath Positive: Other - Right calf pain and edema. Positive: Other - redness to back of right leg Neurological: Negative Negative: Weakness, Paresthesia, Numbness All Other Systems Reviewed And Are Negative: Yes Physical Exam Triage Information Reviewed: Yes Vital Signs On Initial Exam: Initial Vitals Temp Pulse Resp BP Pulse Ox 97.8 F 79 18 151/95 98 01/16/19 09:06 01/16/19 09:06 01/16/19 09:06 01/16/19 09:06 01/16/19 09:06 Vital Signs Reviewed: Yes Appearance: Positive: Well-Appearing - Pt. sitting up in bed in NAD. SO present. Skin: Positive: Warm, Dry Head/Face: Positive: Normal Head/Face Inspection Eyes: Positive: Normal, EOMI Neck: Positive: Supple Respiratory/Lung Sounds: Positive: Clear to Auscultation, Breath Sounds Present Cardiovascular: Positive: Normal, RRR Musculoskeletal: Positive: Other - Good right pedal pulse. Mild edema and pain. Mild erythema to right posterior knee in an annular pattern. Neurological: Positive: Normal, CN Intact II-III Psychiatric: Positive: Affect/Mood Appropriate Procedures - Sedation Patient Received Moderate/Deep Sedation with Procedure: No Diagnostics - Vital Signs Vital Signs Temp Pulse Resp BP Pulse Ox 01/16/19 09:06 97.8 F 79 18 151/95 98 - Laboratory Result Diagrams: 01/16/19 12:58 01/16/19 12:58 Lab Statement: Any lab studies that have been ordered have been reviewed, and results considered in the medical decision making process. Lower Extremity Course/Dx - Course Course Of Treatment: Pt. with worsening leg pain and ?nonocclusive dvt. Repeat u /s today is negative for DVT per radiology. Pt. is afebrile and well appearing. Unclear of rash etiology. It is located behind knee and in an annular pattern. Possible fungal component? Pt. examined by Dr. Douglas as well. He feels pain seems to be mostly from knee. He recommends basic labs and knee xray. Xrays shows soft tissue swelling and degenerative changes per radiology. Labs unremarkable other than minimally elevated CRP of 12. Will try a fungal cream for rash. Advised pt. to keep area dry. Strongly advised to see pcp within the week for f.u. May need derm referral is rash persist. Advised pt. to discuss xarelto continuation given negative u/s today. Pt. will return to er if sxs change or worsen. - Diagnoses Differential Diagnosis/HQI/PQRI: Positive: Cellulitis, Contusion, DVT, Infection , Strain Provider Diagnoses: Leg pain, Rash Discharge ED - Sign-Out/Discharge Documenting (check all that apply): Patient Departure - Discharge Plan Condition: Good Disposition: HOME Prescriptions: Clotrimazole 1% CREAM* [Clotrimazole 1%*] 1 applic TOPICAL BID #60 tube Patient Education Materials: Acute Rash (ED), Knee Pain (ED) Referrals: Shannon Culp [Medical Doctor] - Jerome DANG,Torey Mcclure [Primary Care Provider] - Additional Instructions: Please schedule a follow up appointment with your PCP and dermatology for further evaluation of rash and knee pain Use cream as directed Tylenol for pain as directed Return to ER if symptoms change or worsen - Billing Disposition and Condition Condition: GOOD Disposition: Home
[2019-01-16 13:24] LABS: ABS Basophils 0.1 10^3/ul (0-0.2); ABS Eosinophils 0.2 10^3/ul (0-0.6); ABS Lymphocytes 2.3 10^3/ul (1.0-4.8); ABS Monocytes 0.6 10^3/ul (0-0.8); ABS Neutrophils 6.9 10^3/ul (1.5-7.7); Eosinophil % 1.8 %; Hematocrit 44 % (35-47); Hemoglobin 14.9 g/dL (12.0-16.0); Lymphocyte % 22.9 %; Mean Corpuscular HGB Conc 34 g/dL (31-36); Mean Corpuscular Hemoglobin 30 pg (27-31); Mean Corpuscular Volume 88 fL (80-97); Mean Platelet Volume 9.6 fL (7.4-10.4); Platelet Count 362 10^3/uL (150-450); Red Blood Count 4.99 10^6 /uL (3.70-4.87); Red Cell Distribution Width 14 % (10-15); White Blood Count 10.1 10^3/uL (3.5-10.8)
[2019-01-16 13:34] LABS: Albumin 4.1 g/dL (3.2-5.2); Albumin/Globulin Ratio 1.3 (1-3); C Reactive Protein 12.67 mg/L (<8.01); Calcium 9.7 mg/dL (8.6-10.3); EGFR African American 147.7 (>60); EGFR Non-African American 122.1 (>60); Globulin 3.2 g/dL (2-4); Potassium 3.7 mmol/L (3.5-5.0); Total Bilirubin 0.4 mg/dL (0.2-1.0); Total Protein 7.3 g/dL (6.4-8.9)
[2019-01-16 14:29] VITALS: BP 129/93
[2019-01-17 22:24] LABS: B garinii/B afzelii PCR Negative (Negative); B mayonii PCR Negative (Negative)
== END 2019-01-16 14:27 | disposition home or self-care (01) ==
LOC: ED 09:03
DX: M79.604 Pain in right leg (principal); R21 Rash and other nonspecific skin eruption; Z90.710 Acquired absence of both cervix and uterus
CPT/HCPCS: 36415; 80053; 85025; 86140; 87476; 87798; 99283